=== PATIENT | male | born 1940 | race Caucasian/White ===

== ENCOUNTER 2019-06-15 14:44 | Emergency (ER) | payer OTHER ==
[~2019-06-15] VITALS: Ht 157.5 cm; Wt 69.3 kg
[2019-06-15 15:00] VITALS: Ht 157.5 cm; Wt 69.3 kg
[2019-06-15] MEDS ORDERED: ASPIRIN 325 MG TAB PO STA ×2 (16:21→17:11)
--- NOTE | 2019-06-15 16:24 | ERD ---
ER Documentation Chief Complaint Chief Complaint chest pain that radiates to left arm x 3 days HPI Patient with no known past medical history for 3 days patient has been having intermittent chest pressure. No shortness of breath no exertional component. No headache or blurry vision. Has had multiple episodes of vomiting. No abd ominal pain no recent travel antibiotics. No drugs or alcohol. Patient denies taking any medications or being told he has high blood pressure. ROS All systems reviewed and are negative except as per history of present illness. Medications Home Meds No Active Prescriptions or Reported Meds Allergies Allergies: Coded Allergies: No Known Allergy (Unverified , 06/15/19) PMhx/Soc Medical and Surgical Hx: pt denies Medical Hx, pt denies Surgical Hx History of Surgery: No Anesthesia Reaction: No Hx Neurological Disorder: No Hx Respiratory Disorders: No Hx Cardiac Disorders: No Hx Psychiatric Problems: No Hx Miscellaneous Medical Probl: No Hx Alcohol Use: No Hx Substance Use: No Hx Tobacco Use: No Smoking Status: Never smoker Physical Exam Vitals Vital Signs Date Temp Pulse Resp B/P (MAP) Pulse Ox O2 O2 Flow FiO2 Time Delivery Rate 06/15/19 98.2 94 16 212/124 99 15:00 (153) Physical Exam Const: No acute distress Head: Atraumatic Eyes: Normal Conjunctiva ENT: Normal External Ears, Nose and Mouth. Neck: Full range of motion. No meningismus. Resp: Clear to auscultation bilaterally Cardio: Regular rate and rhythm, no murmurs Abd: Soft, non tender, non distended. Normal bowel sounds Skin: No petechiae or rashes Back: No midline or flank tenderness Ext: No cyanosis, or edema Neur: Awake and alert Psych: Normal Mood and Affect Result Diagram: 06/15/19 1531 06/15/19 1531 Results 24 hrs Laboratory Tests Test 06/15/19 15:31 White Blood Count 9.8 10^3/ul Red Blood Count 5.15 10^6/ul Hemoglobin 14.9 g/dl Hematocrit 45.1 % Mean Corpuscular Volume 87.6 fl Mean Corpuscular Hemoglobin 28.9 pg Mean Corpuscular Hemoglobin Concent 33.0 g/dl Red Cell Distribution Width 13.6 % Platelet Count 235 10^3/UL Mean Platelet Volume 10.4 fl Immature Granulocytes % 0.900 % Neutrophils % 73.1 % Lymphocytes % 18.4 % Monocytes % 7.0 % Eosinophils % 0.2 % Basophils % 0.4 % Nucleated Red Blood Cells % 0.0 /100WBC Immature Granulocytes # 0.090 10^3/ul Neutrophils # 7.2 10^3/ul Lymphocytes # 1.8 10^3/ul Monocytes # 0.7 10^3/ul Eosinophils # 0.0 10^3/ul Basophils # 0.0 10^3/ul Nucleated Red Blood Cells # 0.0 10^3/ul Sodium Level 139 mmol/L Potassium Level 3.9 mmol/L Chloride Level 104 mmol/L Carbon Dioxide Level 22 mmol/L Anion Gap 13 Blood Urea Nitrogen 11 mg/dl Creatinine 1.05 mg/dl Est Glomerular Filtrat Rate mL/min mL/min Glucose Level 128 mg/dl Calcium Level 9.7 mg/dl Troponin I 0.656 ng/ml Current Medications Medications Dose Sig/Ervin Start Time Status Last (Trade) Ordered Route PRN Stop Time Admin Dose Reason Admin Aspirin 325 mg ONCE STAT 06/15/19 DC 06/15/19 (Aspirin) PO 16:21 16:44 06/15/19 16:23 1 tab Q5M UP TO 3 06/15/19 06/15/19 Nitroglycerin DOSES PRN 16:30 16:57 SL .CHEST (Nitroglyceri PAIN n (Sl Tab) 0.4 Mg) Aspirin 325 mg ONCE STAT 06/15/19 DC (Aspirin) PO 17:11 06/15/19 17:14 Clopidogrel 300 mg ONCE STAT 06/15/19 DC 06/15/19 Bisulfate PO 17:11 17:20 (plaVIX) 06/15/19 17:13 Heparin 4,000 unit ONCE STAT 06/15/19 DC Sodium IV 17:11 (Porcine) 06/15/19 17:13 (Heparin (1000 Units/ml)) Heparin 250 ml @ 0 ONCE STAT 06/15/19 DC Sodium mls/hr IV 17:11 (Porcine) 06/15/19 17:13 Procedures/MDM Patient presented with chest pain for 3days presenting also with hypertension. Will get troponin labs. Aspirin given. Will give nitro for chest pain and high blood pressure. Initial EKG with no STEMI however borderline elevations of ST segments in V3 V4 no reciprocal ST depressions second EKG with dynamic changes with now V2 V3 borderline elevations again no ST depressions chest pain has improved with nitro. Troponin elevated. Will give heparin Plavix and aspirin and consult cardiology for possible transfer ECG Time: 1449 Ventricular Rate: 93 Rhythm: normal sinus rhythm. ST Segments: without evidence of depressions V2 and V4 borderline elevation but concave up. And no reciprocal ST depressions Intervals: without evidence of AV block, new BBB, long QT, Brugada No evidence of delta wave. ECG Time: 1643 Ventricular Rate: 85 Rhythm: normal sinus rhythm. ST Segments: without evidence of depressions borderline elevation V2 V3 Intervals: without evidence of AV block, new BBB, long QT, Brugada No evidence of delta wave. Progress note Time: 1732 Recent vitals: Heart rate 92 blood pressure 164/108 Update: Chest pain-free heparin bolus Plavix aspirin given [facility] accepted patient will transfer patient accepting doctor is RAFIQ Barlow MD Jun 15, 2019 16:24
[2019-06-15] MEDS ORDERED: NITROGLYCERIN (SL) 0.4 MG TAB SL PRN (16:30)
[2019-06-15] MEDS ORDERED: HEPARIN 1000 UNITS/ML 10 ML INJ IV STA (17:11)
[2019-06-15] MEDS ORDERED: HEPARIN 25000 UNITS/250 ML 250 ML IV STA (17:11)
[2019-06-15] MEDS ORDERED: CLOPIDOGREL 300 MG TAB PO STA (17:11)
[2019-06-15 17:37] VITALS: BP 164/108; PULSE 95; RESP 18
== END 2019-06-15 17:48 | disposition short-term general hospital (02) ==
LOC: E/R 14:44
DX: I10 Essential (primary) hypertension (principal)
CPT/HCPCS: 36415; 71045; 80048; 84484; 85025; 93005; 96374; 99285; J1644